=== PATIENT | female | born 1975 | race African-American/Black ===

== ENCOUNTER → 2016-11-13 | Outpatient (CLI) | payer BC ==
--- NOTE | ~2016-11-13 | MY29 ---
[facility] A Service [facility] RADIOLOGY TEXT RESULTS PATIENT: HERBERT GARCIA LOCATION: [facility] : 71 UNIT #: [id number] AGE: [address]: Elise Finn APRN SEX: F ORDER DR: [id number] [facility] [address] [place], [place] [address] [id number] O MR#: [id number] Acc #: [id number] NAME: HERBERT GARCIA : 1975 SEX: F STUDY DATE/TIME: 11/13/2016 13:43 UNIT: [facility] ROOM: STUDY DESCRIPTION: [facility] SCREENING W/ CAD BILAT Attending Physician: Elise Finn A.P.R.N. Referring Physician: Elise Finn A.P.R.N. Ordering Physician: Elise Finn A.P.R.N. Primary Care Physician: Elise Finn A.P.R.N. MEDICAL IMAGING REPORT This report is preliminary unless electronic signature is present EXAM Digital screening mammogram, 11/13/2016, [facility]. HISTORY 41-year-old woman baseline mammogram. No risk elevation. COMPARISON None TECHNIQUE Digital imaging of each breast was completed utilizing screening protocol. Review includes FDA-approved CAD device. FINDINGS Breast parenchyma is extremely dense reflecting fibroglandular parenchymal pattern. I see no suspicious mass characteristics. There are no microcalcifications and no suspicious architectural deformity. IMPRESSION Negative baseline mammogram. Extremely dense breast parenchyma. Annual screening recommended. Patients over the age of 40 are entered into a reminder system with target due date for the next mammogram. A result letter will also be sent to the patient. BIRADS: 1 Negative Dictated by... Clifton Lindsey M.D. [facility] A Service [facility] RADIOLOGY TEXT RESULTS PATIENT: HERBERT GARCIA LOCATION: [facility] : 71 UNIT #: [id number] AGE: [address]: Elise Finn APRN SEX: F ORDER DR: THIS IS AN ELECTRONICALLY VERIFIED REPORT Clifton Lindsey M.D. at 11/16/2016 8:11 AM Jorge TD: 11/13/2016 16:40 JOB #: [id number] MEDICAL IMAGING REPORT Page 1 of 1 COPY
== END | disposition home or self-care (01) ==
LOC: CWCC 13:00
DX: Z12.31 Encounter for screening mammogram for malignant neoplasm of breast (principal)
CPT/HCPCS: G0202